=== PATIENT | female | born 1980 | race Caucasian/White ===

== ENCOUNTER → 2019-10-27 08:44 | Outpatient (BNVA) | payer SELFPAY | PROVIDERS: Family Provider Nurse Practitioner; PCP Nurse Practitioner; Visit Provider Nurse Practitioner | DX: E55.9 Vitamin D deficiency, unspecified (principal); E03.9 Hypothyroidism, unspecified; K05.10 Chronic gingivitis, plaque induced; Z13.6 Encounter for screening for cardiovascular disorders | CPT/HCPCS: 80053; 80061; 81000; 82306; 84443; 85025 ==

== ENCOUNTER → 2020-02-23 14:23 | Outpatient (BNVA) | payer SELFPAY | PROVIDERS: Family Provider Nurse Practitioner; PCP Nurse Practitioner; Visit Provider Obstetrics & Gynecology | DX: N90.89 Other specified noninflammatory disorders of vulva and perineum (principal) | CPT/HCPCS: 88305 ==

== ENCOUNTER → 2020-04-18 11:38 | Outpatient (BNVA) | payer SELFPAY | PROVIDERS: Family Provider Nurse Practitioner; PCP Nurse Practitioner; Visit Provider Nurse Practitioner | DX: R53.83 Other fatigue (principal); E55.9 Vitamin D deficiency, unspecified; J32.9 Chronic sinusitis, unspecified; Z13.6 Encounter for screening for cardiovascular disorders; Z86.39 Personal history of other endocrine, nutritional and metabolic disease | CPT/HCPCS: 80053; 80061; 82306; 82607; 84439; 84443; 84481; 85025 ==

== ENCOUNTER → 2020-12-25 10:31 | Outpatient (BNVA) | payer SELFPAY | PROVIDERS: Family Provider Nurse Practitioner; PCP Nurse Practitioner; Visit Provider Nurse Practitioner | DX: Z01.89 Encounter for other specified special examinations (principal); E55.9 Vitamin D deficiency, unspecified; R53.83 Other fatigue; Z86.39 Personal history of other endocrine, nutritional and metabolic disease | CPT/HCPCS: 80053; 82306; 82607; 84443; 85025 ==

== ENCOUNTER → 2020-12-29 10:22 | Outpatient (BNVA) | payer SELFPAY | PROVIDERS: Family Provider Nurse Practitioner; PCP Nurse Practitioner; Visit Provider Nurse Practitioner | DX: J41.0 Simple chronic bronchitis (principal); F17.200 Nicotine dependence, unspecified, uncomplicated | CPT/HCPCS: 71046 ==

== ENCOUNTER → 2021-11-08 15:32 | Outpatient (BNVA) | payer SELFPAY | PROVIDERS: Family Provider Nurse Practitioner; PCP Nurse Practitioner; Visit Provider Nurse Practitioner | DX: E55.9 Vitamin D deficiency, unspecified (principal); Z86.39 Personal history of other endocrine, nutritional and metabolic disease; J41.0 Simple chronic bronchitis; K06.9 Disorder of gingiva and edentulous alveolar ridge, unspecified; J30.89 Other allergic rhinitis; Z12.31 Encounter for screening mammogram for malignant neoplasm of breast | CPT/HCPCS: 80053; 82306; 82607; 84146; 84443 ==

== ENCOUNTER → 2022-06-11 14:47 | Outpatient (BNVA) | payer SELFPAY | PROVIDERS: Family Provider Nurse Practitioner; PCP Nurse Practitioner; Visit Provider Nurse Practitioner Family | DX: R53.83 Other fatigue (principal); M25.50 Pain in unspecified joint; E55.9 Vitamin D deficiency, unspecified | CPT/HCPCS: 80053; 82306; 84439; 84443; 84481; 86140; 86160; 86162; 86235; 86255; 86376; 86431 ==

== ENCOUNTER 2022-06-14 21:16 | Emergency (ER) | payer SELFPAY ==
[2022-06-14 21:24] VITALS: BP 162/84; PULSE 106; RESP 16; TEMP 36.8; O2SAT 99; BMI 32.4
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
[2022-06-14] MEDS: ketorolac 30 mg/mL INJ IM (21:47)
== END 2022-06-14 21:59 | disposition home or self-care (01) ==
PROVIDERS: Emergency Provider Nurse Practitioner Family; PCP Nurse Practitioner
DX: M54.50 Low back pain, unspecified (principal); R20.0 Anesthesia of skin; R20.2 Paresthesia of skin; F17.210 Nicotine dependence, cigarettes, uncomplicated
CPT/HCPCS: 96372; 99284; J1885

== ENCOUNTER → 2022-12-31 12:07 | Outpatient (BNVA) | payer SELFPAY | PROVIDERS: PCP Nurse Practitioner Family; Visit Provider Internal Medicine Rheumatology | DX: Z79.899 Other long term (current) drug therapy (principal); M19.90 Unspecified osteoarthritis, unspecified site; M45.6 Ankylosing spondylitis lumbar region | CPT/HCPCS: 36415; 80076; 82306; 82565; 85025; 85651; 86140; 86200; 86812 ==

== ENCOUNTER → 2023-03-18 15:08 | Outpatient (BNVA) | payer SELFPAY | PROVIDERS: PCP Nurse Practitioner Family; Visit Provider Internal Medicine Rheumatology | DX: M54.2 Cervicalgia (principal) | CPT/HCPCS: 72040 ==

== ENCOUNTER 2023-06-02 19:33 | Emergency (ER) | payer SELFPAY ==
[2023-06-02 19:46] VITALS: BP 153/92; PULSE 122; RESP 16; TEMP 36.9; O2SAT 99; BMI 31.2
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
[2023-06-02] MEDS: sulfamethoxazole-trimeth DS 160-800 mg Tablet 1 TAB PO (20:18)
[2023-06-02 20:23] VITALS: BP 153/92; PULSE 122; RESP 16; TEMP 36.9; O2SAT 99
== END 2023-06-02 20:25 | disposition home or self-care (01) ==
PROVIDERS: Emergency Provider Nurse Practitioner; PCP Nurse Practitioner Family
DX: L02.31 Cutaneous abscess of buttock (principal); L03.317 Cellulitis of buttock; N61.1 Abscess of the breast and nipple; Z72.0 Tobacco use
CPT/HCPCS: 99283

== ENCOUNTER → 2023-09-12 08:09 | Outpatient (BNVA) | payer MEDICAID, SELFPAY | PROVIDERS: PCP Nurse Practitioner; Visit Provider Internal Medicine Rheumatology | DX: Z79.899 Other long term (current) drug therapy (principal); M19.90 Unspecified osteoarthritis, unspecified site | CPT/HCPCS: 80076; 82565; 85025; 86140 ==

== ENCOUNTER → 2023-09-17 08:19 | Outpatient (BNVA) | payer MEDICAID, SELFPAY | PROVIDERS: PCP Nurse Practitioner; Visit Provider Internal Medicine Rheumatology | DX: M19.90 Unspecified osteoarthritis, unspecified site (principal); Z79.899 Other long term (current) drug therapy; E55.9 Vitamin D deficiency, unspecified | CPT/HCPCS: 82040; 82306 ==

== ENCOUNTER → 2023-11-17 13:02 | Outpatient (BNVA) | payer BC, MEDICAID, SELFPAY | PROVIDERS: PCP Nurse Practitioner; Visit Provider Nurse Practitioner | DX: Z12.4 Encounter for screening for malignant neoplasm of cervix (principal); Z13.6 Encounter for screening for cardiovascular disorders; M25.50 Pain in unspecified joint | CPT/HCPCS: 73630; 80053; 80061; 84443; 87624 ==

== ENCOUNTER → 2023-12-10 09:45 | Outpatient (CLI) | payer BC, MEDICAID, SELFPAY ==
--- NOTE | 2023-12-10 10:00 | US_ITS ---
WS: [email or web address] Pelvic ultrasound, 12/10/2023 Clinical Data: PAIN Comparison: Pelvic ultrasound, 12/26/2017. Findings: The uterus measures 8.9 cm x 6.5 cm x 5.4 cm. The uterus shows heterogeneous echogenicity with a fund al fibroid measuring 1.6 x 1.8 x 2.0 cm The endometrium is 1.4 cm. No intrauterine or abnormal intrauterine mass is seen. There are several nabothian cysts. The left ovary measures 3.9 cm x 2.4 cm x 3.0 cm with a simple cyst measuring 1.6 x 1.8 x 1.9 cm. The right ovary measures 3.1 cm x 1.8 cm x 2.8 cm with no cysts or masses. There is no fluid in the cul-de-sac. US/US pelv w/transvag [id number] Impression: 1. Small uterine fibroid. 2. Small right ovarian cyst.
--- NOTE | 2023-12-10 11:00 | MM_ITS ---
WS: [id number] BILATERAL 3D TOMOSYNTHESIS DIGITAL SCREENING MAMMOGRAM WITH CAD CLINICAL INFORMATION: Z12.31 - Encounter for screening mammogram for malignant ... HISTORY: Screening mammogram. No current complaints. COMPARISON: 2014 TECHNIQUE: Bilateral CC and MLO. FINDINGS: The breast are composed of extremely dense tissue, which can limit the detection of small underlying mass lesions. No suspicious focal mass, asymmetry, calcifications, or architectural distortion. No ev idence of malignancy. Punctate and lucent centered calcifications. MM/[place] [id number] IMPRESSION: BI-RADS: 2-Benign FOLLOW UP: 1 Year Follow-up Recommend return to annual screening mammography.
== END | disposition home or self-care (01) ==
LOC: RAD 09:44
PROVIDERS: PCP Nurse Practitioner; Visit Provider Nurse Practitioner
DX: Z12.31 Encounter for screening mammogram for malignant neoplasm of breast (principal); R92.333 Mammographic heterogeneous density, bilateral breasts; R92.1 Mammographic calcification found on diagnostic imaging of breast; N85.2 Hypertrophy of uterus; D25.9 Leiomyoma of uterus, unspecified; N83.291 Other ovarian cyst, right side
CPT/HCPCS: 76830; 76856; 77063; 77067

== ENCOUNTER → 2024-01-20 14:25 | Outpatient (BNVA) | payer BC, MEDICAID, SELFPAY | PROVIDERS: PCP Nurse Practitioner; Visit Provider Nurse Practitioner Family | DX: R05.9 Cough, unspecified (principal) | CPT/HCPCS: 87400; 87426 ==

== ENCOUNTER → 2024-07-23 11:00 | Outpatient (BNVA) | payer BC, MEDICAID, SELFPAY | PROVIDERS: PCP Nurse Practitioner; Visit Provider Nurse Practitioner Family | DX: J11.1 Influenza due to unidentified influenza virus with other respiratory manifestations (principal) | CPT/HCPCS: 87400 ==

== ENCOUNTER → 2025-03-10 14:13 | Outpatient (BNVA) | payer BC, MEDICAID, SELFPAY | PROVIDERS: PCP Nurse Practitioner Family; Visit Provider Nurse Practitioner | DX: E55.9 Vitamin D deficiency, unspecified (principal); Z86.39 Personal history of other endocrine, nutritional and metabolic disease; Z13.6 Encounter for screening for cardiovascular disorders | CPT/HCPCS: 80053; 80061; 82306; 82607; 84443 ==

== ENCOUNTER 2025-03-16 11:54 | Outpatient (CLI) | payer BC, MEDICAID, SELFPAY ==
--- NOTE | 2025-03-16 12:03 | XR_ITS ---
WS: [email or web address] XR thoracic spine 3V* [id number] REASON FOR EXAM: M25.572 - Pain in left ankle and joints of left foot FINDINGS: Approximately 10 degrees of levoscoliosis in the upper thoracic spine. No thoracic vertebral body abnormality. No significant kyphosis. Intervertebral disc spaces are intact and relatively well preserved with minimal endplate sclerosis and osteophytosis in the mid thoracic spine. XR/XR thoracic spine 3V* [id number] IMPRESSION: Mild scoliosis and minimal degenerative spondylosis as above.
--- NOTE | 2025-03-16 12:03 | XR_ITS ---
WS: [email or web address] XR lumbar spine 2-3V* [id number] REASON FOR EXAM: M25.572 - Pain in left ankle and joints of left foot FINDINGS: Minimal rotatory dextroscoliosis. Normal lumbar lordosis No significant lumbar vertebral body abnormality. Intervertebral disc spaces are intact and relatively well preserved. No spondylolysis and no significant spondylolisthesis. Cholelithiasis. XR/XR lumbar spine 2-3V* [id number] IMPRESSION: Minimal curvature of the lumbar spine without other significant abnormality. Cholelithiasis.
--- NOTE | 2025-03-16 12:03 | XR_ITS ---
WS: [email or web address] XR cervical spine 3V* [id number] REASON FOR EXAM: M25.572 - Pain in left ankle and joints of left foot FINDINGS: Mild reversal of the normal lordosis of the cervical spine. No significant cervical vertebral body abnormality. Mild to minimal narrowing of the disc space at C4-C5. No significant spondylolisthesis. Normal facet joints. XR/XR cervical spine 3V* [id number] IMPRESSION: Abnormal cervical spine curvature and mild degenerative spondylosis as above.
--- NOTE | 2025-03-16 12:03 | XR_ITS ---
WS: [email or web address] XR shoulder RT min 2V* [id number] REASON FOR EXAM: M25.511 - Pain in right shoulder FINDINGS: There is no acute fracture. There is deformity of the distal clavicle compatible with old healed fracture. Acromioclavicular joint is intact with minimal subchondral sclerosis. Glenohumeral joint is not well demonstrated but does not appear to be significantly narrowed. There is no significant subarticular bony change in the glenoid or humerus. Old healed right rib fractures 5 through 7. XR/XR shoulder RT min 2V* [id number] IMPRESSION: No significant arthropathy.
== END 2025-03-16 11:55 | disposition home or self-care (01) ==
PROVIDERS: PCP Nurse Practitioner Family; Visit Provider Nurse Practitioner
DX: M25.511 Pain in right shoulder (principal); M25.78 Osteophyte, vertebrae; M41.9 Scoliosis, unspecified; K80.20 Calculus of gallbladder without cholecystitis without obstruction; M47.812 Spondylosis without myelopathy or radiculopathy, cervical region
CPT/HCPCS: 72040; 72072; 72100; 73030

== ENCOUNTER 2025-04-18 21:20 | Emergency (ER) | payer BC, MEDICAID, SELFPAY ==
[2025-04-18 21:26] VITALS: BP 158/91; PULSE 94; RESP 17; TEMP 36.8; O2SAT 96; BMI 35.2
[2025-04-18 22:01] VITALS: BP 135/83; O2SAT 98
--- NOTE | 2025-04-18 22:15 | CTR_ITS ---
PROCEDURE INFORMATION: Exam: CT Pelvis Without Contrast Exam date and time: 04/18/2025 10:42 PM Age: 44 years old Clinical indication: Other: Abscess; Additional info: Perirectal abscess TECHNIQUE: Imaging protocol: Computed tomography of the pelvis without contrast. Radiation optimization: All CT scans at this facility use at least one of these dose optimization techniques: automated exposure control; mA and/or kV adjustment per patient size (includes targeted exams where dose is matched to clinical indication); or iterative reconstruction. COMPARISON: US pelv w/transvag [id number] 12/10/2023 9:54 AM RADIATION DOSE METRICS: Total DLP (mGy-cm): 770.31 FINDINGS: Intestine: Minimal soft tissue stranding along the anus, correlate for proctitis. Appendix: No evidence of appendicitis. Intraperitoneal space: Unremarkable. No free air. No significant fluid collection. Lymph nodes: Unremarkable. No enlarged lymph nodes. Reproductive: Normal as visualized. Urinary bladder: Normal. No mass. Bones/joints: Unremarkable. No acute fracture. No dislocation. Soft tissues: No perianal abscess or fistula. CT/CT pelvis con [id number] IMPRESSION: 1. No perianal abscess or fistula. 2. Minimal soft tissue stranding along the anus, correlate for proctitis.
--- NOTE | 2025-04-18 22:15 | XRR_ITS ---
PROCEDURE INFORMATION: Exam: XR Chest Exam date and time: 04/18/2025 10:35 PM Age: 44 years old Clinical indication: Shortness of breath; Additional info: Short of breath TECHNIQUE: Imaging protocol: Radiologic exam of the chest. Views: 1 view. COMPARISON: CR XR chest 2V* [id number] 12/29/2020 10:22 AM FINDINGS: Lungs: Unremarkable. No consolidation. Pleural spaces: No focal consolidation, pleural effusion, or pneumothorax. Heart/Mediastinum: Unremarkable. No cardiomegaly. Bones/joints: Multiple old, healed bilateral rib fractures. XR/XR chest 1V portable [id number] IMPRESSION: No focal consolidation, pleural effusion, or pneumothorax.
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
[2025-04-18] MEDS: orphenadrine 30 mg/mL Inj 2 mL 60 MG IM (23:40)
[2025-04-18 23:59] VITALS: BP 165/95; PULSE 87; RESP 16; O2SAT 96
== END 2025-04-19 | disposition home or self-care (01) ==
PROVIDERS: Emergency Provider Physician Assistant; PCP Nurse Practitioner Family
DX: K61.1 Rectal abscess (principal); Z72.0 Tobacco use
CPT/HCPCS: 71045; 72192; 96372; 99284; J1885; J2360; J9999

== ENCOUNTER → 2025-04-20 08:39 | Outpatient (BNVA) | payer BC, MEDICAID, SELFPAY | PROVIDERS: PCP Nurse Practitioner Family; Visit Provider Nurse Practitioner | DX: R60.9 Edema, unspecified (principal) | CPT/HCPCS: 80053; 85025 ==

== ENCOUNTER 2025-04-21 02:28 | Emergency (ER) | payer BC, MEDICAID, SELFPAY ==
[2025-04-21 02:32] VITALS: BP 155/94; PULSE 101; RESP 17; TEMP 36.8; O2SAT 96; BMI 35.2
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
--- OUTSIDE RECORDS SUMMARY | 2025-04-21 02:37 | XMS_ITS | Clinical Summary ---
Author Organization [facility] Address [address] [facility] [address] [place] [address] Phone Care Team Providers Care Hollow Handle Knife Assembler Name Role Phone Gurwinder Villa HEAD SAMPLER Primary Care Provider Allergies Active Allergy Reactions Criticality Noted Date Comments Cephalexin Rash Low 10/21/2020 Clindamycin Shortness of Breath/Wheezing High 2020 Sertraline Other (See Comments) 07/02/2019 Trembles Medications cyclobenzaprine HCl (CYCLOBENZAPRINE ORAL) Take by mouth. Active CHOLECALCIFEROL, VITAMIN D3, ORAL Take by mouth daily. Active ACETAMINOPHEN ORAL Take by mouth. Active ibuprofen (MOTRIN) 200 mg tablet Take 400 mg by mouth every 6 hours as needed for Pain, Mild. Active Encounters Date Type Department Care Team Description 04/05/2025 External Device Data ST[facility] ABSTRACTION Provider, Abstract 03/30/2025 External Device Data STL ABSTRACTION Provider, Abstract 03/30/2025 External Device Data STL ABSTRACTION Provider, Abstract 03/29/2025 External Device Data STL ABSTRACTION Provider, Abstract 03/29/2025 External Device Data ST[facility] ABSTRACTION Provider, Abstract 03/08/2025 External Device Data ST[facility] ABSTRACTION Provider, Abstract 02/22/2025 External Device Data ST[facility] ABSTRACTION Provider, Abstract 02/15/2025 External Device Data ST[facility] ABSTRACTION Provider, Abstract 02/08/2025 External Device Data STL ABSTRACTION Provider, Abstract 02/08/2025 External Device Data STL ABSTRACTION Provider, Abstract 02/02/2025 External Device Data STL ABSTRACTION Provider, Abstract 02/01/2025 External Device Data STL ABSTRACTION Provider, Abstract from Last 3 Months Immunizations Immunization Administration Dates Next Due Hepatitis A Vaccine 08/18/1998,03/23/1998,1997 Hepatitis B Vaccine 08/18/1998,03/23/1998,1997 Social History Tobacco Use Types Packs/Day Years Used Date Smoking Tobacco: Every Day Cigarettes Smokeless Tobacco: Never Tobacco Cessation:Ready to Q uit: Not Asked; Counseling Given: Not Answered Alcohol Use Standard Drinks/Week Comments Yes 0 (1 standard drink = 0.6 oz pur e alcohol) occasional Feeling Safe Answer Date Recorded Are you in a relationship wi th someone who hurts you emotionally and/or physically? No 04/07/2024 Comments No Sex and Gender Information Value Date Recorded Sex Assigned at Not on file Legal Sex Female 3:31 PM FUNERAL HOME ATTENDANT Gender Identity Not on file Sexual Orientation Not on file Last Filed Vital Signs Vital Sign Reading Time Taken Comments Blood Pressure 113/85 04/07/2024 8:00 PM FUNERAL HOME ATTENDANT Pulse 83 04/07/2024 8:00 PM FUNERAL HOME ATTENDANT Temperature 37.2 C (99 F) 04/07/2024 7:02 PM FUNERAL HOME ATTENDANT Respiratory Rate 22 04/07/2024 8:00 PM FUNERAL HOME ATTENDANT Oxygen Saturation 96% 04/07/2024 8:00 PM FUNERAL HOME ATTENDANT Inhaled Oxygen Concentration - - Weight 80.8 kg (178 lb 3.2 oz) 04/07/2024 7:02 P M FUNERAL HOME ATTENDANT Height 165.1 cm (5' 5 ) 04/07/2024 7:02 PM FUNERAL HOME ATTENDANT Body Mass Index 29.65 04/07/2024 7:02 PM FUNERAL HOME ATTENDANT Plan of Treatment Health Maintenance Due Date Last Done Comments DTAP/TDAP/TD VACCINES (1 - Tdap) 2001 HPV/Cotest (21-29) 11/27/2003 HPV VACCINES (1 - 3-dose SCD M series) 2009 CERVICAL CANCER SCREENING 2012 HPV/Cotest (30-65) 2012 PAP SMEAR 2012 BREAST CANCER SCREENING 2022 INFLUENZA VACCINE (#1) 2024 HEPATITIS B VACCINES Completed 08/18/1998, 03/23/1998, 02/02/1998 Insurance [facility] [place] [address] Care Teams Hollow Handle Knife Assembler Relationship Specialty Start Date End Date Gurwinder Villa NP [address] [place] [phone] PCP - General 10/21/20
--- OUTSIDE RECORDS SUMMARY | 2025-04-21 02:37 | XMS_ITS | Encounter Summary ---
Author Organization [facility] Address [address] [place] [address] Care Team Providers Care Emission Technician Name Role Phone Gurwinder Villa MOLD ENGRAVER Primary Care Provider [phone] Encounter Details Date Type Department Care Team (Latest Contact Info) Description 07/05/2002 Outpatient Historical [facility] Imaging Services [address] [place] [id number] Rian Schmitt MD [address] [place] [address] PLEURAL EFFUSION NOS (Primary Dx) Social History Tobacco Use Types Packs/Day Years Used Date Smoking Tobacco: Never Assessed Comments Unknown Sex and Gender Information Value Date Recorded Sex Assigned at Not on file Legal Sex Female 6:16 AM BEEF LUGGER Gender Identity Not on file Sexual Orientation Not on file documented as of this encounter Plan of Treatment Not on file documented as of this encounter Visit Diagnoses Diagnosis Unspecified pleural effusion- Primary documented in this encounter Care Teams Emission Technician Relationship Specialty Start Date End Date Gurwinder Villa NP [address] [place] [phone] PCP - General NURSE PRACTITIONER 10/21/20 documented as of this encounter
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
--- OUTSIDE RECORDS SUMMARY | 2025-04-21 02:37 | XMS_ITS | Encounter Summary ---
Author Organization [facility] Address [address] [place] [address] Care Team Providers Care Curtains And Draperies Salesperson Name Role Phone Gurwinder Villa SOLAR POOL HEATING INSTALLER Primary Care Provider Encounter Details Date Type Department Care Team (Latest Contact Info) Description 07/13/2002 Outpatient Historical [facility] Imaging Services [address] [place] [address] Manny Brito MD [address] [address] PLEURISY W/O EFFUS OR TB (Primary Dx) Social History Tobacco Use Types Packs/Day Years Used Date Smoking Tobacco: Never Assessed Comments Unknown Sex and Gender Information Value Date Recorded Sex Assigned at Not on file Legal Sex Female 6:16 AM MOLD OPERATOR Gender Identity Not on file Sexual Orientation Not on file documented as of this encounter Plan of Treatment Not on file documented as of this encounter Visit Diagnoses Diagnosis Pleurisy without mention of effusion or current tuberculosis- Primary documented in this encounter Care Teams Curtains And Draperies Salesperson Relationship Specialty Start Date End Date Gurwinder Villa NP [address] [place] [phone] PCP - General NURSE PRACTITIONER 10/21/20 documented as of this encounter
--- OUTSIDE RECORDS SUMMARY | 2025-04-21 02:37 | XMS_ITS | Encounter Summary ---
Author Organization [facility] Address [address] [place] [address] Care Team Providers Care Beauty Counselor Name Role Phone Gurwinder Villa COLD ROLL OPERATOR Primary Care Provider Encounter Details Date Type Department Care Team (Latest Contact Info) Description 09/20/2002 Outpatient Historical [facility] Imaging Services [address] [place] [phone] Rian Schmitt MD [address] [place] [address] FOLLOW-UP EXAM NEC (Primary Dx) Social History Tobacco Use Types Packs/Day Years Used Date Smoking Tobacco: Never Assessed Comments Unknown Sex and Gender Information Value Date Recorded Sex Assigned at Not on file Legal Sex Female 6:16 AM WAITER/WAITRESS COUNTER Gender Identity Not on file Sexual Orientation Not on file documented as of this encounter Plan of Treatment Not on file documented as of this encounter Visit Diagnoses Diagnosis Other follow-up examination(V67.59)- Primary Other follow-up examination documented in this encounter Care Teams Beauty Counselor Relationship Specialty Start Date End Date Gurwinder Villa NP [address] [place] [phone] PCP - General NURSE PRACTITIONER 10/21/20 documented as of this encounter
--- OUTSIDE RECORDS SUMMARY | 2025-04-21 02:37 | XMS_ITS | Clinical Summary ---
Author Organization [facility] Address [address] [facility] [address] [place] [address] Phone Care Team Providers Care Sewer System Supervisor Name Role Phone Gurwinder Villa CCTV TECHNICIAN Primary Care Provider Allergies Active Allergy Reactions Criticality Noted Date Comments Cephalexin Rash Low 10/21/2020 Clindamycin Shortness of Breath/Wheezing High 2020 Sertraline Other (See Comments) 07/02/2019 Trembles Medications hydrOXYzine pamoate (VISTARIL) 25 mg capsule Take 1 Capsule (25 mg) by mouth 3 times daily as needed for Anxiety or Insomnia. Do not drive or operate equipment while using this medication. 15 Capsule 1 0 Active amoxicillin-cla vulanate (AUGMENTIN) 875-125 mg tablet Take 1 Tablet by mouth every 12 hours. Take after eating 20 Tablet 1 Active Immunizations Immunization Administration Dates Next Due Hepatitis A Vaccine 08/18/1998,03/23/1998,1997 Hepatitis B Vaccine 08/18/1998,03/23/1998,1997 Social History Tobacco Use Types Packs/Day Years Used Date Smoking Tobacco: Every Day Cigarettes 2 15 Smokeless Tobacco: Never Tobacco Cessation:Ready to Q uit: No; Counseling Given: No Alcohol Use Standard Drinks/Week Comments Never 0 (1 standard drink = 0.6 oz pur e alcohol) Comments No Sex and Gender Information Value Date Recorded Sex Assigned at Not on file Legal Sex Female 6:16 AM QA AUDITOR Gender Identity Not on file Sexual Orientation Not on file Last Filed Vital Signs Vital Sign Reading Time Taken Comments Blood Pressure 155/99 10/21/2020 8:12 PM CDT Pulse 99 08/12/2019 7:25 PM CDT Temperature 36.9 C (98.5 F) 10/21/2020 8:12 PM CDT Respiratory Rate 18 10/21/2020 8:12 PM CDT Oxygen Saturation 97% 10/21/2020 8:12 PM CDT Inhaled Oxygen Concentration - - Weight 79.7 kg (175 lb 9.6 oz) 10/21/2020 8:12 P M CDT Height 167.6 cm (5' 6 ) 10/21/2020 8:12 PM CDT Body Mass Index 28.34 10/21/2020 8:12 PM CDT Plan of Treatment Health Maintenance Due Date Last Done Comments DTAP/TDAP/TD VACCINES (1 - Tdap) 2001 HPV/Cotest (21-29) 11/27/2003 HPV VACCINES (1 - 3-dose SCD M series) 2009 CERVICAL CANCER SCREENING 2012 HPV/Cotest (30-65) 2012 PAP SMEAR 2012 BREAST CANCER SCREENING 2022 INFLUENZA VACCINE (#1) 2024 HEPATITIS B VACCINES Completed 08/18/1998, 03/23/1998, 02/02/1998 Care Teams Sewer System Supervisor Relationship Specialty Start Date End Date Gurwinder Villa NP [address] [place] [phone] PCP - General NURSE PRACTITIONER 10/21/20
--- OUTSIDE RECORDS SUMMARY | 2025-04-21 02:37 | XMS_ITS | Encounter Summary ---
Author Organization [facility] Address [address] [place] [address] Care Team Providers Care Hog Buyer Name Role Phone Gurwinder Villa AZURE ARCHITECT Primary Care Provider [phone] Encounter Details Date Type Department Care Team (Late st Contact Info) Description 06/15/2002 Inpatient Historical [facility] Rian Schmitt MD [address] [place] [address] REHABILITATION PROC NEC (Primary Dx) Social History Tobacco Use Types Packs/Day Years Used Date Smoking Tobacco: Never Assessed Comments Unknown Sex and Gender Information Value Date Recorded Sex Assigned at Not on file Legal Sex Female 6:16 AM ROTO ROOTER OPERATOR Gender Identity Not on file Sexual Orientation Not on file documented as of this encounter Plan of Treatment Not on file documented as of this encounter Visit Diagnoses Diagnosis Other specified rehabilitation procedure(V57.89)- Primary Other specified rehabilitation procedure documented in this encounter Care Teams Hog Buyer Relationship Specialty Start Date End Date Gurwinder Villa NP [address] [place] [phone] PCP - General NURSE PRACTITIONER 10/21/20 documented as of this encounter
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
--- OUTSIDE RECORDS SUMMARY | 2025-04-21 02:37 | XMS_ITS | Encounter Summary ---
Author Organization [facility] Address [address] [place] [address] Care Team Providers Care Dehydration Plant Operator Name Role Phone Gurwinder Villa BLANCHING MACHINE OPERATOR Primary Care Provider Encounter Details Date Type Department Care Team (Late st Contact Info) Description 07/05/2002 Outpatient Historical [facility] Physical Med and Re[facility]- [place] [address] [place] [address] Rian Schmitt MD [address] [place] [address] INJURY DIRECTOR OF COUNTERINTELLIGENCE SITE/SITE NEC (Primary Dx); BRAIN HEMORRH NEC-COMA NOS (CMS/HCC) Social History Tobacco Use Types Packs/Day Years Used Date Smoking Tobacco: Never Assessed Comments Unknown Sex and Gender Information Value Date Recorded Sex Assigned at Not on file Legal Sex Female 6:16 AM EXTENSION PROFESSOR Gender Identity Not on file Sexual Orientation Not on file documented as of this encounter Plan of Treatment Not on file documented as of this encounter Visit Diagnoses Diagnosis Injury, other and unspecified, other specified sites, including multiple- Primary Other and unspecified intracranial hemorrhage following injury, without mention of open intracranial wound, loss of consciousness of unspecified duration documented in this encounter Care Teams Dehydration Plant Operator Relationship Specialty Start Date End Date Gurwinder Villa NP [address] [place] [phone] PCP - General NURSE PRACTITIONER 10/21/20 documented as of this encounter
--- OUTSIDE RECORDS SUMMARY | 2025-04-21 02:37 | XMS_ITS | Encounter Summary ---
Author Organization [facility] Address [address] [place] [address] Care Team Providers Care Flask Handler Name Role Phone Gurwinder Villa WHITING CAN WORKER Primary Care Provider [phone] Encounter Details Date Type Department Care Team (Latest Contact Info) Description 09/26/1998 Outpatient Historical [facility] Oral and Maxillo Surgery[address] [place] [address] Ezekiel Orona, PhD NO ADDRESS ON FILE Dental caries (Primary Dx) Social History Tobacco Use Types Packs/Day Years Used Date Smoking Tobacco: Never Assessed Comments Unknown Sex and Gender Information Value Date Recorded Sex Assigned at Not on file Legal Sex Female 6:16 AM ESTERS AND EMULSIFIERS SUPERVISOR Gender Identity Not on file Sexual Orientation Not on file documented as of this encounter Plan of Treatment Not on file documented as of this encounter Visit Diagnoses Diagnosis Dental caries- Primary documented in this encounter Care Teams Flask Handler Relationship Specialty Start Date End Date Gurwinder Villa NP [address] [place] [phone] PCP - General NURSE PRACTITIONER 10/21/20 documented as of this encounter
--- OUTSIDE RECORDS SUMMARY | 2025-04-21 02:37 | XMS_ITS | Encounter Summary ---
Author Organization [facility] Address [address] [place] [address] Care Team Providers Care Change Attendant Name Role Phone Gurwinder Villa E BUSINESS MANAGER Primary Care Provider [phone] Encounter Details Date Type Department Care Team (Latest Contact Info) Description 07/13/2002 Outpatient Historical [facility] Imaging and Laboratory Services [address] [place] [phone] Evette Floyd MD [address] [place] [address] CERVICALGIA (Primary Dx) Social History Tobacco Use Types Packs/Day Years Used Date Smoking Tobacco: Never Assessed Comments Unknown Sex and Gender Information Value Date Recorded Sex Assigned at Not on file Legal Sex Female 6:16 AM PARTS DESIGNER Gender Identity Not on file Sexual Orientation Not on file documented as of this encounter Plan of Treatment Not on file documented as of this encounter Visit Diagnoses Diagnosis Cervicalgia- Primary documented in this encounter Care Teams Change Attendant Relationship Specialty Start Date End Date Gurwinder Villa NP [address] [place] [phone] PCP - General NURSE PRACTITIONER 10/21/20 documented as of this encounter
[2025-04-21 02:46] VITALS: BP 155/94; PULSE 103; RESP 18; O2SAT 95
--- NOTE | 2025-04-21 03:18 | USR_ITS ---
PROCEDURE INFORMATION: Exam: US Duplex Lower Extremity Veins, Bilateral Exam date and time: 04/21/2025 3:25 AM Age: 44 years old Clinical indication: Other: Ble tingling and pain; Additional info: Ramon prince tingling and pain TECHNIQUE: Imaging protocol: Real-time duplex ultrasound of the bilateral extremities with 2-D hoffmann scale, color Doppler flow and spectral waveform analysis including responses to compression and other maneuvers (when performed) with image documentation. Complete exam focused on the lower extremity veins. COMPARISON: No relevant prior studies available. FINDINGS: Evaluated veins include bilateral common femoral, proximal profunda femoral, proximal/mid/distal superficial femoral, popliteal, posterior tibial, peroneal, and proximal greater saphenous veins. Right leg: No visible clot in the included veins. The included veins appear normally compressible. Duplex Doppler evaluation demonstrates flow in the evaluated veins. Left leg: No visible clot in the included veins. The included veins appear normally compressible. Duplex Doppler evaluation demonstrates flow in the evaluated veins. US/CV venous duplex [facility] [id number] IMPRESSION: 1. No evidence of acute right lower extremity DVT. 2. No evidence of acute left lower extremity DVT.
[2025-04-21 03:25] LABS: Hematocrit 48.4 % (36-47); Hemoglobin 16.20 g/dL (11.27-16.99); Mean Corpuscular HGB Conc 33.5 g/dL (30-55); Mean Corpuscular Hemoglobin 29.1 pg (27-33); Mean Corpuscular Volume 87.1 fl (85-98); Nucleated Red Blood Cells % 0 %; Platelet Count 315 10^3/cmm (157-399); Red Blood Count 5.56 10^6/uL (3.85-5.65); White Blood Count 11.35 10^3/uL (3.29-11.43)
[2025-04-21 03:47] LABS: Troponin(5th) Baseline 9 ng/L (0-10)
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
[2025-04-21 03:57] LABS: Alanine Aminotransferase 42 U/L (0-33); Albumin Level 4.6 g/dL (3.5-5.2); Alkaline Phosphatase 95 U/L (35-105); Anion Gap 17.7 (5-19); Aspartate Amino Transferase 23 U/L (0-32); Blood Urea Nitrogen 17 mg/dL (6-20); Calcium 9.9 mg/dL (8.5-10.5); Carbon Dioxide 25 mmol/L (22-29); Chloride 97 mmol/L (98-107); Globulin 2.9 g/dL (1.3-4.6); Glucose 118 mg/dL (65-115); Lipase 26 U/L (13-60); NT Pro B Type Natriuretic Pept < 36 pg/mL (0-125); Osmolality Calculated 285 mOsm/kg (285-295); Potassium 3.7 mmol/L (3.5-5.1); Sodium 136 mmol/L (136-145); Thyroid Stimulating Hormone 4.78 uIU/mL (0.27-4.20); Total Protein 7.5 g/dL (6.6-8.7)
[2025-04-21 04:29] VITALS: BP 121/79; PULSE 88; RESP 15; O2SAT 95
[2025-04-21 04:30] VITALS: BP 112/71; PULSE 84; RESP 17; O2SAT 95
[2025-04-21 04:30] LABS: Glucose Urine UA Negative (Normal); Nitrate Urine Negative (Negative); Specific Gravity, Urine 1.004 (1.005-1.030)
[2025-04-21 04:36] LABS: Add Urine Microscopic? YES
[2025-04-21 05:00] VITALS: BP 126/82; PULSE 75; RESP 18; O2SAT 94
[2025-04-21 05:00] LABS: UA Slide Review UA Slide Review Perf
[2025-04-21 05:13] LABS: Troponin 5 2HR 9.20 ng/L (0-10); Troponin 5 2HR Delta 0.20 ABS# (0-10)
[2025-04-21 05:16] VITALS: BP 107/76; PULSE 80; O2SAT 96
--- NOTE | 2025-04-21 05:18 | ECG_ITS ---
[facility] 2025[facility]21 Pat Name: Lilibeth Solis Department: Room: Gender: Female Rn Plastic Surgery: : 1980 Requested By: Tarik Marks Order Number: [id number] Bhargavi MD: Elis Griffin M.D. Measurements Intervals [place] Rate: 113 P: 63 IA: 129 QRS: 62 QRSD: 77 T: 71 QT: 324 QTc: 445 Interpretive Statements SINUS TACHYCARDIA NONSPECIFIC ST & T-WAVE ABNORMALITY ABNORMAL RHYTHM ECG Compared to ECG 04/30/2017 20:08:18 No significant changes Electronically Signed On 04-23-2025 14:46:43 SANDSTONE SPLITTER by Elis Griffin M.D. [email or web address]
== END 2025-04-21 05:35 | disposition home or self-care (01) ==
PROVIDERS: Emergency Provider Student in an Organized Health Care Education/Training Program; PCP Nurse Practitioner Family
DX: R25.2 Cramp and spasm (principal); Z86.39 Personal history of other endocrine, nutritional and metabolic disease; Z72.0 Tobacco use; I10 Essential (primary) hypertension
CPT/HCPCS: 80053; 81001; 82550; 83690; 83880; 84443; 84484; 85025; 86705; 86706; 86709; 86803; 87340; 93005; 93970; 99284; J7030; J9999

== ENCOUNTER 2025-04-22 14:03 | Emergency (ER) | payer BC, MEDICAID, SELFPAY ==
[2025-04-22 14:06] VITALS: BP 149/84; PULSE 125; RESP 23; TEMP 36.6; O2SAT 100
--- OUTSIDE RECORDS SUMMARY | 2025-04-22 14:06 | XMS_ITS | Clinical Summary ---
Author Organization [facility] Address [address] [place] [address] Phone Care Team Providers Care Foundry Hand Name Role Phone Gurwinder Villa SHINGLE TRIMMER Primary Care Provider Allergies Active Allergy Reactions [...] on file Legal Sex Female 3:31 PM CORRECTIONAL MANAGER Gender Identity Not on file Sexual Orientation Not on file Last Filed Vital Signs Vital Sign Reading Time Taken Comments Blood Pressure 113/85 04/07/2024 8:00 PM CORRECTIONAL MANAGER Pulse 83 04/07/2024 8:00 PM CORRECTIONAL MANAGER Temperature 37.2 C (99 F) 04/07/2024 7:02 PM CORRECTIONAL MANAGER Respiratory Rate 22 04/07/2024 8:00 PM CORRECTIONAL MANAGER Oxygen Saturation 96% 04/07/2024 8:00 PM CORRECTIONAL MANAGER Inhaled Oxygen Concentration - - Weight 80.8 kg (178 lb 3.2 oz) 04/07/2024 7:02 P M CORRECTIONAL MANAGER Height 165.1 cm (5' 5 ) 04/07/2024 7:02 PM CORRECTIONAL MANAGER Body Mass Index 29.65 04/07/2024 7:02 PM CORRECTIONAL MANAGER Plan of Treatment Health Maintenance Due Date Last Done Comments DTAP/TDAP/TD VACCINES (1 - Tdap) 2001 HPV/Cotest (21-29) 11/27/2003 HPV VACCINES (1 - 3-dose SCD M series) 2009 CERVICAL CANCER SCREENING 2012 HPV/Cotest (30-65) 2012 PAP SMEAR 2012 BREAST CANCER SCREENING 2022 INFLUENZA VACCINE (#1) 2024 HEPATITIS B VACCINES Completed 08/18/1998, 03/23/1998, 02/02/1998 Insurance [facility] MEDICAID Care Teams Foundry Hand Relationship Specialty Start Date End Date Gurwinder Villa NP [address] [place] [phone] PCP - General 10/21/20
--- OUTSIDE RECORDS SUMMARY | 2025-04-22 14:06 | XMS_ITS | Encounter Summary ---
Author Organization [facility] Address [address] [place] [address] Care Team Providers Care Coffee Machine Technician Name Role Phone Gurwinder Villa TECHNICAL PROGRAM MANAGER Primary Care Provider Encounter Details Date Type Department Care Team (Latest Contact Info) Description 09/20/2002 Outpatient Historical [facility] Imaging Services [address] [place] [phone] Rian Schmitt MD [address] [place] [address] FOLLOW-UP EXAM NEC (Primary Dx) Social History Tobacco Use Types Packs/Day Years Used Date Smoking Tobacco: Never Assessed Comments Unknown Sex and Gender Information Value Date Recorded Sex Assigned at Not on file Legal Sex Female 6:16 AM SCRATCH FINISHER Gender Identity Not on file Sexual Orientation Not on file documented as of this encounter Plan of Treatment Not on file documented as of this encounter Visit Diagnoses Diagnosis Other follow-up examination(V67.59)- Primary Other follow-up examination documented in this encounter Care Teams Coffee Machine Technician Relationship Specialty Start Date End Date Gurwinder Villa NP [address] [place] [phone] PCP - General NURSE PRACTITIONER 10/21/20 documented as of this encounter
--- OUTSIDE RECORDS SUMMARY | 2025-04-22 14:06 | XMS_ITS | Encounter Summary ---
Author Organization [facility] Address [address] [place] [address] Care Team Providers Care Cardroom Worker Name Role Phone Gurwinder Villa ELECTRICAL LINEMAN Primary Care Provider Encounter Details Date Type Department Care Team (Latest Contact Info) Description 07/13/2002 Outpatient Historical [facility] General and Trauma Surgery-[address] [place] [address] Manny Brito MD [address] [place] [address] [address] [place] [address] PLEURAL EFFUSION NOS (Primary Dx); FX MULT RIBS NOS-CLOSED; TRAUM PNEUMOTHORAX-CLOSE; NONSPECIF SKIN ERUPT NEC Social History Tobacco Use Types Packs/Day Years Used Date Smoking Tobacco: Never Assessed Comments Unknown Sex and Gender Information Value Date Recorded Sex Assigned at Not on file Legal Sex Female 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 Gender Identity Not on file Sexual Orientation Not on file documented as of this encounter Plan of Treatment Not on file documented as of this encounter Visit Diagnoses Diagnosis Unspecified pleural effusion- Primary Closed fracture of multiple ribs, unspecified Traumatic pneumothorax without mention of open wound into thorax Rash and other nonspecific skin eruption documented in this encounter Care Teams Cardroom Worker Relationship Specialty Start Date End Date Gurwinder Villa NP [address] [place] [phone] PCP - General NURSE PRACTITIONER 10/21/20 documented as of this encounter
--- OUTSIDE RECORDS SUMMARY | 2025-04-22 14:06 | XMS_ITS | Encounter Summary ---
Author Organization [facility] Address [address] [place] [address] Care Team Providers Care Executive Assistant To General Counsel Name Role Phone Gurwinder Villa LOG PREPARER Primary Care Provider [phone] Encounter Details Date Type Department Care Team (Latest Contact Info) Description 09/26/1998 Outpatient Historical [facility] Oral and Maxillo Surgery[address] [place] [address] Ezekiel Orona, PhD NO ADDRESS ON FILE Dental caries (Primary Dx) Social History Tobacco Use Types Packs/Day Years Used Date Smoking Tobacco: Never Assessed Comments Unknown Sex and Gender Information Value Date Recorded Sex Assigned at Not on file 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
--- OUTSIDE RECORDS SUMMARY | 2025-04-22 14:06 | XMS_ITS | Encounter Summary ---
Author Organization [facility] Address [address] [place] [address] Care Team Providers Care Button Broacher Name Role Phone Gurwinder Villa WARPER FIXER Primary Care Provider [phone] Encounter Details Date Type Department Care Team (Latest Contact Info) Description 07/13/2002 Outpatient Historical [facility] Imaging and Laboratory Services 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
--- OUTSIDE RECORDS SUMMARY | 2025-04-22 14:06 | XMS_ITS | Clinical Summary ---
Author Organization [facility] Address [address] [facility] [address] [place] [address] Phone Care Team Providers Care Live Games Dealer Name Role Phone Gurwinder Villa NURSING HOME AIDE Primary Care Provider Allergies Active Allergy Reactions [...] on file Legal Sex Female 6:16 AM SPECIMEN PREPARATION ASSISTANT Gender Identity Not on file Sexual Orientation [...] VACCINES Completed 08/18/1998, 03/23/1998, 02/02/1998 Care Teams Live Games Dealer Relationship Specialty Start Date End Date Gurwinder Villa NP [address] [place] [phone] PCP - General NURSE PRACTITIONER 10/21/20
--- OUTSIDE RECORDS SUMMARY | 2025-04-22 14:06 | XMS_ITS | Encounter Summary ---
Author Organization [facility] Address [address] [place] [address] Care Team Providers Care Wheelchair Driver Name Role Phone Gurwinder Villa SPRING INSPECTOR Primary Care Provider [phone] Encounter Details Date Type Department Care Team (Latest Contact Info) Description 07/05/2002 Outpatient Historical [facility] Imaging Services [address] [place] [phone] Rian Schmitt MD [address] [place] [address] PLEURAL EFFUSION NOS (Primary Dx) Social History Tobacco Use Types Packs/Day Years Used Date Smoking Tobacco: Never Assessed Comments Unknown Sex and Gender Information Value Date Recorded Sex Assigned at Not on file Legal Sex Female 6:16 AM ELECTRICAL LINEMAN Gender Identity Not on file Sexual Orientation Not on file documented as of this encounter Plan of Treatment Not on file documented as of this encounter Visit Diagnoses Diagnosis Unspecified pleural effusion- Primary documented in this encounter Care Teams Wheelchair Driver Relationship Specialty Start Date End Date Gurwinder Villa NP [address] [place] [phone] PCP - General NURSE PRACTITIONER 10/21/20 documented as of this encounter
--- OUTSIDE RECORDS SUMMARY | 2025-04-22 14:06 | XMS_ITS | Encounter Summary ---
Author Organization [facility] Address [address] [place] [address] Care Team Providers Care Set Up Worker Name Role Phone Gurwinder Villa TELESCOPE REPAIRER Primary Care Provider [phone]- [phone] Encounter Details Date Type Department Care Team (Late st Contact Info) Description 09/20/2002 Outpatient Historical [facility] Physical Med and Rehab- [place] [address] [place] [address] Rian Schmitt MD [address] [place] [address] LUMBAGO (Primary Dx); CERVICALGIA; INJURY VACUUM SPINDLE SANDER SITE/SITE NEC; BRAIN HEMORRH NEC-COMA NOS (CMS/HCC) Social History Tobacco Use Types Packs/Day Years Used Date Smoking Tobacco: Never Assessed Comments Unknown Sex and Gender Information Value Date Recorded Sex Assigned at Not on file Legal Sex Female 6:16 AM 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
--- OUTSIDE RECORDS SUMMARY | 2025-04-22 14:06 | XMS_ITS | Encounter Summary ---
Author Organization [facility] Address [address] [place] [address] Care Team Providers Care Automobile Mechanic Motor Name Role Phone Gurwinder Villa FINISHER MERCHANT PRODUCTS Primary Care Provider Encounter Details Date Type Department Care Team (Late st Contact Info) Description 05/27/2002 Inpatient Historical [facility] Manny Brito MD [address] [address] TRAUM PNEUMOHEMOTHOR-CLOSE (Primary Dx) Social History Tobacco Use Types Packs/Day Years Used Date Smoking Tobacco: Never Assessed Comments Unknown Sex and Gender Information Value Date Recorded Sex Assigned at Not on file Legal Sex Female 6:16 AM FLORAL ASSOCIATE Gender Identity Not on file Sexual Orientation Not on file documented as of this encounter Plan of Treatment Not on file documented as of this encounter Visit Diagnoses Diagnosis Traumatic pneumohemothorax without mention of open wound into thorax- Primary documented in this encounter Care Teams Automobile Mechanic Motor Relationship Specialty Start Date End Date Gurwinder Villa NP [address] [place] [phone] PCP - General NURSE PRACTITIONER 10/21/20 documented as of this encounter
--- OUTSIDE RECORDS SUMMARY | 2025-04-22 14:06 | XMS_ITS | Encounter Summary ---
Author Organization [facility] Address [address] [place] [address] Care Team Providers Care Market Basket Maker Name Role Phone Gurwinder Villa FIRE EXTINGUISHER TECHNICIAN Primary Care Provider [phone] Encounter Details Date Type Department Care Team (Late st Contact Info) Description 07/05/2002 Outpatient Historical [facility] Physical Med and Rehab- [place] [address] [place] [address] Rian Schmitt MD [address] [place] [address] INJURY PLANISHING HAMMER OPERATOR SITE/SITE NEC (Primary Dx); BRAIN HEMORRH NEC-COMA NOS (CMS/HCC) Social History Tobacco Use Types Packs/Day Years Used Date Smoking Tobacco: Never Assessed Comments Unknown Sex and Gender Information Value Date Recorded Sex Assigned at Not on file Legal Sex Female 6:16 AM OPTICAL MODEL MAKER AND TESTER Gender Identity Not on file Sexual Orientation [...] duration documented in this encounter Care Teams Market Basket Maker Relationship Specialty Start Date End Date Gurwinder Villa NP [address] [place] [phone] PCP - General NURSE PRACTITIONER 10/21/20 documented as of this encounter
--- OUTSIDE RECORDS SUMMARY | 2025-04-22 14:06 | XMS_ITS | Encounter Summary ---
Author Organization [facility] Address [address] [place] [address] Care Team Providers Care Bundles Hanger Name Role Phone Gurwinder Villa ENTERPRISE ACCOUNT MANAGER Primary Care Provider Encounter Details Date Type Department Care Team (Latest Contact Info) Description 07/13/2002 Outpatient Historical [facility] Imaging Services [address] 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
--- OUTSIDE RECORDS SUMMARY | 2025-04-22 14:06 | XMS_ITS | Encounter Summary ---
Author Organization [employer] Address [address] [place] [address] Care Team Providers Care International Affairs Vice President Name Role Phone Gurwinder Villa MARKETING ADMIN Primary Care Provider [phone] Encounter Details Date Type Department Care Team (Late st Contact Info) Description 06/15/2002 Inpatient Historical [facility] Rian Schmitt MD [address] [place] [address] REHABILITATION PROC NEC (Primary Dx) Social History Tobacco Use Types Packs/Day Years Used Date Smoking Tobacco: Never Assessed Comments Unknown Sex and Gender Information Value Date Recorded Sex Assigned at Not on file Legal Sex Female 6:16 AM MAGAZINE PUBLISHER Gender Identity Not on file Sexual Orientation Not on file documented as of this encounter Plan of Treatment Not on file documented as of this encounter Visit Diagnoses Diagnosis Other specified rehabilitation procedure(V57.89)- Primary Other specified rehabilitation procedure documented in this encounter Care Teams International Affairs Vice President Relationship Specialty Start Date End Date Gurwinder Villa NP [address] [place] [phone] PCP - General NURSE PRACTITIONER 10/21/20 documented as of this encounter
--- NOTE | 2025-04-22 14:20 | ECG_ITS ---
[facility] Test Date: 2025-04-22 Pat Name: Lilibeth Solis Department: Room: Gender: Female Airport Ramp Attendant: : 1980 Requested By: Sydni Mata Order Number: [id number] Bhargavi MD: Elis Griffin M.D. Measurements Intervals [place] Rate: 126 P: 81 IA: 134 QRS: 72 QRSD: 82 T: 25 QT: 335 QTc: 486 Interpretive Statements SINUS TACHYCARDIA NONSPECIFIC ST & T-WAVE ABNORMALITY ABNORMAL RHYTHM ECG Compared to ECG 04/21/2025 02:36:35 No significant changes Electronically Signed On 04-23-2025 13:58:50 SCALE AGENT by Elis Griffin M.D. [email or web address]
--- NOTE | 2025-04-22 14:20 | XR_ITS ---
WS: [id number] XR chest 1V portable [id number] REASON FOR EXAM: chest pain FINDINGS: The chest is unchanged compared to 04/18/2025. The heart and the mediastinum are within normal limits. Calcified granulomatous disease bilaterally. No acute pulmonary parenchymal or pleural abnormality. Multiple old healed rib fractures bilaterally most notably on the left. XR/XR chest 1V portable [id number] IMPRESSION: No acute chest abnormality.
[2025-04-22 14:53] VITALS: BP 146/83; PULSE 82; RESP 16; O2SAT 96
[2025-04-22 15:11] VITALS: BP 128/71; PULSE 57; RESP 16; O2SAT 99
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
[2025-04-22 15:26] LABS: Glucose Urine UA Negative (Normal); Nitrate Urine Negative (Negative); Specific Gravity, Urine 1.006 (1.005-1.030)
[2025-04-22 15:29] LABS: Hematocrit 45.2 % (36-47); Hemoglobin 14.80 g/dL (11.27-16.99); Mean Corpuscular HGB Conc 32.7 g/dL (30-55); Mean Corpuscular Hemoglobin 29.0 pg (27-33); Mean Corpuscular Volume 88.5 fl (85-98); Nucleated Red Blood Cells % 0 %; Platelet Count 279 10^3/cmm (157-399); Red Blood Count 5.11 10^6/uL (3.85-5.65); White Blood Count 10.83 10^3/uL (3.29-11.43)
[2025-04-22 15:33] LABS: Add Urine Microscopic? YES
[2025-04-22 15:49] LABS: Lactic Sepsis W/Reflex 1.1 mmol/L (0.5-2.2)
[2025-04-22 15:51] LABS: Troponin(5th) Baseline < 6 ng/L (0-10)
[2025-04-22 15:59] LABS: Alanine Aminotransferase 29 U/L (0-33); Albumin Level 4.5 g/dL (3.5-5.2); Alkaline Phosphatase 89 U/L (35-105); Anion Gap 16.2 (5-19); Aspartate Amino Transferase 16 U/L (0-32); Blood Urea Nitrogen 17 mg/dL (6-20); Calcium 9.4 mg/dL (8.5-10.5); Carbon Dioxide 28 mmol/L (22-29); Chloride 97 mmol/L (98-107); Creatinine Clr Calc Pharmacy 114.2188; Globulin 2.3 g/dL (1.3-4.6); Glucose 105 mg/dL (65-115); NT Pro B Type Natriuretic Pept < 36 pg/mL (0-125); Osmolality Calculated 286 mOsm/kg (285-295); Potassium 4.2 mmol/L (3.5-5.1); Sodium 137 mmol/L (136-145); Total Protein 6.8 g/dL (6.6-8.7)
[2025-04-22 16:45] VITALS: BP 142/88; PULSE 89; RESP 16; O2SAT 98
[2025-04-22 17:56] LABS: Troponin 5 2HR < 6.0 ng/L (0-10); Troponin 5 2HR Delta 0 ABS# (0-10)
== END 2025-04-22 17:34 | disposition home or self-care (01) ==
PROVIDERS: Physician Assistant; Emergency Provider Family Medicine; PCP Nurse Practitioner
DX: R07.89 Other chest pain (principal); Z72.0 Tobacco use
CPT/HCPCS: 36415; 71045; 80053; 81001; 83605; 83880; 84484; 85025; 93005; 99285